=== PATIENT | female | born 1980 | race Asian ===

== ENCOUNTER 2017-04-26 21:02 | Emergency (ER) | payer OTHER ==
[~2017-04-26] VITALS: Ht 157.5 cm; Wt 81.6 kg
[~2017-04-26 21:02] MED LIST: HYDR-971 PO; NAPR500T3 PO
[2017-04-26 21:45] VITALS: BP 125/60
[2017-04-26] MEDS ORDERED: FAMO-63 PO (22:09)
[2017-04-26] MEDS ORDERED: DIPH25CA58 PO (22:09)
[2017-04-26] MEDS ORDERED: PRED-220 PO (22:09)
[2017-04-26] MEDS ORDERED: TRIA15OI TP (22:09)
--- NOTE | 2017-04-26 22:09 | PHYS DOC ---
Past Medical History Past Medical History: No Pertinent History Past Surgical History: No Surgical History Alcohol Use: None Drug Use: None Adult General Chief Complaint Chief Complaint: SKIN PROBLEM HPI HPI Patient is a 36 year old female with no significant medical history presents today with a rash to bilateral upper and lower extremities that began 3 days ago after working in the yard. Patient is Albanian speaking and hourly sign language interpreter line was used. Patient denies any fever. Review of Systems Review of Systems Constitutional: Denies fever or chills [] Eyes: Denies change in visual acuity, redness, or eye pain [] HENT: Denies nasal congestion or sore throat [] Respiratory: Denies cough or shortness of breath [] Cardiovascular: No additional information not addressed in HPI [] GI: Denies abdominal pain, nausea, vomiting, bloody stools or diarrhea [] : Denies dysuria or hematuria [] Musculoskeletal: Denies back pain or joint pain [] Integument: rash Neurologic: Denies headache, focal weakness or sensory changes [] Endocrine: Denies polyuria or polydipsia [] Allergies Allergies Allergies Coded Allergies Type Severity Reaction Last Updated Verified No Known Drug Allergies 11/07/15 No Physical Exam Physical Exam Constitutional: Well developed, well nourished, no acute distress, non-toxic appearance. [] HENT: Normocephalic, atraumatic, bilateral external ears normal, oropharynx moist, no oral exudates, nose normal. [] Eyes: PERRLA, EOMI, conjunctiva normal, no discharge. [] Neck: Normal range of motion, no tenderness, supple, no stridor. [] Cardiovascular:Heart rate regular rhythm, no murmur [] Lungs & Thorax: Bilateral breath sounds clear to auscultation [] Abdomen: Bowel sounds normal, soft, no tenderness, no masses, no pulsatile masses. [] Skin: Bilateral upper and lower extremities with moderate amount of erythematous papular rash consistent with contact dermatitis from possible poison natalia or poison oak. Back: No tenderness, no CVA tenderness. [] Extremities: No tenderness, no cyanosis, no clubbing, ROM intact, no edema. [] Neurologic: Alert and oriented X 3, normal motor function, normal sensory function, no focal deficits noted. [] Psychologic: Affect normal, judgement normal, mood normal. [] Current Patient Data Vital Signs Vital Signs Date Time Temp Pulse Resp B/P (MAP) Pulse Ox O2 Delivery O2 Flow Rate FiO2 04/26/17 21:45 98.5 67 12 98 Room Air 98.5 EKG EKG [] Radiology/Procedures Radiology/Procedures [] Course & Med Decision Making Course & Med Decision Making Pertinent Labs and Imaging studies reviewed. (See chart for details) Patient has contact dermatitis rash from either poison natalia or poison oak. Discharged with tapered dose of prednisone, Benadryl, Pepcid and triamcinolone cream. Follow-up with her own PCP in 1-2 weeks. Dragon Disclaimer Dragon Disclaimer This electronic medical record was generated, in whole or in part, using a voice recognition dictation system. Departure Departure Impression: Primary Impression: Contact dermatitis Disposition: 01 HOME, SELF-CARE Condition: STABLE Referrals: ADDIE PAULSON MD (PCP) Follow-up with your own doctor in 1-2 weeks Patient Instructions: Contact Dermatitis Additional Instructions: You were seen for contact dermatitis rash. Follow-up with your primary care doctor in the next 2 weeks. Take the medications provided as prescribed. Scripts Triamcinolone Acetonide (TRIAMCINOLONE ACETONIDE 0.1% OINT) 15 Gm Oint...g. 1 ROSETTA TP BID for WOUND CARE, #1 TUBE MIX WITH EUCERIN DIRECTED BY PHYSICIAN Prov: ENRIQUE KELLY APRN 04/26/17 Diphenhydramine Hcl (BENADRYL) 25 Mg Capsule 1 CAP PO Q4HRS W/A, #30 CAP 1 Refill Prov: ENRIQUE KELLY APRN 04/26/17 Famotidine (PEPCID) 20 Mg Tablet 20 MG PO DAILY, #7 TAB Prov: ENRIQUE KELLY APRN 04/26/17 Prednisone (PREDNISONE) 10 Mg Tablet 10 MG PO UD for PREDNISONE TAPER, #39 TAB 0 Refills Take 3 tablets by mouth twice a day for 3 days, then take 2 tablets by mouth twice a day for 3 days, then take 1 tablet by mouth twice a day for 3 days, then take 1 tablet by mouth daily x 3 days, then stop. Prov: ENRIQUE KELLY APRN 04/26/17 Problem Qualifiers Primary Impression: Contact dermatitis Contact dermatitis type: unspecified Contact dermatitis trigger: unspecified trigger Qualified Codes: L25.9 - Unspecified contact dermatitis, unspecified cause ENRIQUE KELLY APRN April 26, 2017 22:09
== END 2017-04-26 22:13 | disposition home or self-care (01) ==
LOC: ER 21:02
DX: L25.9 Unspecified contact dermatitis, unspecified cause (principal)
CPT/HCPCS: 99283

== ENCOUNTER 2017-04-30 16:52 | Emergency (ER) | payer OTHER ==
[~2017-04-30] VITALS: Ht 157.5 cm; Wt 81.6 kg
[~2017-04-30 16:52] MED LIST changes: +DIPH25CA58 PO; +FAMO-63 PO; +PRED-220 PO; +TRIA15OI TP
[2017-04-30 17:10] VITALS: BP 116/72
--- NOTE | 2017-04-30 17:24 | PHYS DOC ---
Past Medical History Past Medical History: No Pertinent History Past Surgical History: No Surgical History Alcohol Use: None Drug Use: None Adult General Chief Complaint Chief Complaint: SKIN RASH/ABSCESS [facility] HPI Patient is a 36 year old female presents emergency department stating that she was here 2 days ago for contact dermatitis. She was placed on prednisone taper. She was provided with a prescription for Pepcid as well. Patient states has had a continuous spreading of the rash up into the arm area. She states that it itches and has pustular type areas. All information was obtained through the parts interpreter line as the patient speaks Bhutanese. Review of Systems Review of Systems Constitutional: Denies fever or chills [] Eyes: Denies change in visual acuity, redness, or eye pain [] HENT: Denies nasal congestion or sore throat [] Respiratory: Denies cough or shortness of breath [] Cardiovascular: No additional information not addressed in HPI [] GI: Denies abdominal pain, nausea, vomiting, bloody stools or diarrhea [] : Denies dysuria or hematuria [] Musculoskeletal: Denies back pain or joint pain [] Integument: rash denies skin lesions [] Neurologic: Denies headache, focal weakness or sensory changes [] Endocrine: Denies polyuria or polydipsia [] Allergies Allergies Allergies Coded Allergies Type Severity Reaction Last Updated Verified No Known Drug Allergies 11/07/15 No Physical Exam Physical Exam Constitutional: Well developed, well nourished, no acute distress, non-toxic appearance. [] HENT: Normocephalic, atraumatic, bilateral external ears normal, oropharynx moist, no oral exudates, nose normal. [] Eyes: PERRLA, EOMI, conjunctiva normal, no discharge. [] Neck: Normal range of motion, no tenderness, supple, no stridor. [] Cardiovascular:Heart rate regular rhythm Lungs & Thorax: No respiratory distress noted Skin: Warm, dry, no erythema. Patient with red raised rash that appears to be pustular on the right upper arm. She does have dried areas noted. Back: No tenderness Extremities: No tenderness, no cyanosis, no clubbing, ROM intact, no edema. [] Neurologic: Alert and oriented X 3, normal motor function, normal sensory function, no focal deficits noted. [] Psychologic: Affect normal, judgement normal, mood normal. [] Current Patient Data Vital Signs Vital Signs Date Time Temp Pulse Resp B/P (MAP) Pulse Ox O2 Delivery O2 Flow Rate FiO2 04/30/17 17:10 98.2 68 16 98 Room Air 98.2 EKG EKG [] Radiology/Procedures Radiology/Procedures [] Course & Med Decision Making Course & Med Decision Making Pertinent Labs and Imaging studies reviewed. (See chart for details) Patient was instructed through the parts interpreter line to continue to use the medications as prescribed. Was also instructed to use Aveeno baths, calamine lotion as well as Benadryl. Patient was recommended to follow-up primary care physician on Saturday. Signs symptoms to return back to emergency department as been provided. [] Dragon Disclaimer Dragon Disclaimer This electronic medical record was generated, in whole or in part, using a voice recognition dictation system. Departure Departure Impression: Primary Impression: Contact dermatitis Disposition: HOME, SELF-CARE Condition: STABLE Referrals: ADDIE PAULSON MD (PCP) Patient Instructions: Contact Dermatitis, [id number] Additional Instructions: Your being evaluated for contact dermatitis. Continue the medications as you have been prescribed. Calamine lotion will help dry the areas up. He may use Benadryl 25 mg [id number] every 6 hours for itching and irritation. This medication will cause drowsiness do not take any be alert and oriented. Aveeno baths may also help soothe the skin. Keep the areas clean dry and cool. Follow-up to primary care physician Saturday. Return back to emergency prior signs and symptoms of become worse ANNALEE CARRINGTON APRN April 30, 2017 17:24
== END 2017-04-30 17:31 | disposition home or self-care (01) ==
LOC: ER 16:52
DX: L25.9 Unspecified contact dermatitis, unspecified cause (principal)
CPT/HCPCS: 99281

== ENCOUNTER 2019-11-07 10:08 | Inpatient (IN) | payer OTHER ==
[~2019-11-07] VITALS: Ht 160 cm; Wt 80.3 kg
[~2019-11-07 10:08] MED LIST changes: +DOCU-109 PO; +HYDR-3164 PO; -HYDR-971 PO; +NAPR-514 PO; -NAPR500T3 PO
[2019-11-07] MEDS ORDERED: IV RINGERS,LACTATED 1000ML 1,000 ML IV SCH (10:30)
[2019-11-07 10:56] LABS: BILIRUBIN,URINE NEGATIVE (NEG); CLARITY,URINE CLEAR; COLOR,URINE YELLOW; NITRITE,URINE NEGATIVE (NEG); PROTEIN,URINE NEGATIVE (NEG-TRACE); UROBILINOGEN,URINE 0.2 mg/dL (0.2 mg/dL)
[2019-11-07 11:14] LABS: AMNIO PT POSITIVE
[2019-11-07 11:25] LABS: BACTERIA,URINE 0 /HPF (0-FEW); RBC,URINE 0 /HPF (0-2); SQUAMOUS EPITHELIAL CELL,UR FEW /LPF
[2019-11-07] MEDS ORDERED: LIDOCAINE 1% PF 30 ML VIAL. INJ PRN (11:30)
[2019-11-07] MEDS ORDERED: NALBUPHINE 10 MG/ML AMPUL. IV PRN (11:30)
[2019-11-07] MEDS ORDERED: OXYTOCIN 30 UNIT/500 ML PREMIX 500 ML IV PRN ×3 (11:30→16:15)
[2019-11-07] MEDS ORDERED: 0.9 % SODIUM CHLORIDE 10 ML DISP.SYRIN. IV PRN ×2 (11:30→16:15)
[2019-11-07] MEDS ORDERED: TERBUTALINE 1 MG/ML VIAL. SQ PRN (11:30)
[2019-11-07 11:44] VITALS: BP 128/70
[2019-11-07] MEDS ORDERED: AMPICILLIN SODIUM 2 GM in IV NORMAL SALINE 100ML 100 ML IV ONE (12:00)
[2019-11-07] MEDS: IV NORMAL SALINE 1000ML BAG 1,000 ML IV SCH ×2 (12:03→13:03)
[2019-11-07 12:31] LABS: BASO % 0 % (0-3); EOS % 0 % (0-3); HEMATOCRIT 39.2 % (36.0-47.0); HEMOGLOBIN 13.3 g/dL (12.0-15.5); LYMPH # 1.3 x10^3/uL (1.0-4.8); LYMPH % 20 % (24-48); MEAN CORPUSCULAR HEMOGLOBIN 28 pg (25-35); MEAN CORPUSCULAR HGB CONC 34 g/dL (31-37); MEAN CORPUSCULAR VOLUME 83 fL (79-100); MONO # 0.4 x10^3/uL (0.0-1.1); MONO % 6 % (0-9); NEUT # 4.8 x10^3/uL (1.8-7.7); NEUT % 73 % (31-73); PLATELET COUNT 171 x10^3/uL (140-400); RED BLOOD COUNT 4.72 x10^6/uL (3.50-5.40); RED CELL DISTRIBUTION WIDTH 13.7 % (11.5-14.5); WHITE BLOOD COUNT 6.6 x10^3/uL (4.0-11.0)
[2019-11-07] MEDS ORDERED: ROPIVacaine 0.2% PF 10 ML VIAL. ONE ×2 (15:32→16:00)
[2019-11-07] MEDS ORDERED: L&D EPIDURAL SYRINGE 0 ML ONE (15:33)
[2019-11-07] MEDS ORDERED: BUPIVACAINE MPF 0.25% 30 ML VIAL. EPID PRN (15:45)
[2019-11-07] MEDS ORDERED: NALOXONE 0.4 MG/ML VIAL. IV PRN (15:45)
[2019-11-07] MEDS ORDERED: ROPIVacaine 0.2% PF 10 ML VIAL. EPID PRN (15:45)
[2019-11-07] MEDS ORDERED: L&D EPIDURAL SYRINGE 50 ML EPID PRN (15:45)
[2019-11-07] MEDS ORDERED: fentaNYL PF VIAL 100 MCG/2 ML VIAL EPID PRN (15:45)
[2019-11-07] MEDS ORDERED: AMPICILLIN SODIUM 1 GM in IV NORMAL SALINE 50ML 50 ML IV SCH (16:00)
--- NOTE | 2019-11-07 16:10 | PDOC ---
GENERAL General: 38yrs old EDC12/01/19 admitted in Active labor and Spontaneous Rupture of Membranes. Cervix dilated to 2 cm . VITAL SIGNS Vital Signs/I&O: Vital Signs Date Time Temp Pulse Resp B/P (MAP) Pulse Ox O2 Delivery O2 Flow Rate FiO2 11/07/19 11:44 98.5 75 18 128/70 (89) 98 Room Air 98.5 ALLERGIES Allergies: Allergies Coded Allergies Type Severity Reaction Last Updated Verified No Known Drug Allergies 11/07/15 No MEDS Medications: Current Medications Medications (Trade) Dose Ordered Sig/Prosper Route PRN Reason Start Time Stop Time Status Last Admin Dose Admin Sodium Chloride 1,000 ml @ 125 mls/hr Q8H IV 11/07/19 11:28 11/07/19 13:03 Ampicillin Sodium 2 gm/Sodium Chloride 100 ml @ 200 mls/hr 1X ONCE IV 11/07/19 12:00 11/07/19 12:29 DC 11/07/19 12:22 Oxytocin/Sodium Chloride 500 ml @ 0 mls/hr CONT PRN IV SEE I/O RECORD 11/07/19 11:30 11/07/19 13:02 LAB Lab: Laboratory Tests Test 11/07/19 10:19 11/07/19 10:45 11/07/19 11:48 11/07/19 11:52 Urine Collection Type Unknown Urine Color Yellow Urine Clarity Clear Urine pH 7.0 Urine Specific [place] <=1.005 Urine Protein Negative mg/dL (NEG-TRACE) Urine Glucose (UA) Negative mg/dL (NEG) Urine Ketones (Stick) Negative mg/dL (NEG) Urine Blood Negative (NEG) Urine Nitrite Negative (NEG) Urine Bilirubin Negative (NEG) Urine Urobilinogen Dipstick 0.2 mg/dL (0.2 mg/dL) Urine Leukocyte Esterase Small (NEG) Urine RBC 0 /HPF (0-2) Urine WBC 1-4 /HPF (0-4) Urine Squamous Epithelial Cells Few /LPF Urine Bacteria 0 /HPF (0-FEW) Amniotic Fluid Swab Test Positive White Blood Count 6.6 x10^3/uL (4.0-11.0) Red Blood Count 4.72 x10^6/uL (3.50-5.40) Hemoglobin 13.3 g/dL (12.0-15.5) Hematocrit 39.2 % (36.0-47.0) Mean Corpuscular Volume 83 fL (79-100) Mean Corpuscular Hemoglobin 28 pg (25-35) Mean Corpuscular Hemoglobin Concent 34 g/dL (31-37) Red Cell Distribution Width 13.7 % (11.5-14.5) Platelet Count 171 x10^3/uL (140-400) Neutrophils (%) (Auto) 73 % (31-73) Lymphocytes (%) (Auto) 20 % (24-48) L Monocytes (%) (Auto) 6 % (0-9) Eosinophils (%) (Auto) 0 % (0-3) Basophils (%) (Auto) 0 % (0-3) Neutrophils # (Auto) 4.8 x10^3/uL (1.8-7.7) Lymphocytes # (Auto) 1.3 x10^3/uL (1.0-4.8) Monocytes # (Auto) 0.4 x10^3/uL (0.0-1.1) Eosinophils # (Auto) 0.0 x10^3/uL (0.0-0.7) Basophils # (Auto) 0.0 x10^3/uL (0.0-0.2) Treponema pallidum Antibody Nonreactive (Nonreactive) Glucose (Fingerstick) 75 mg/dL (70-99) Laboratory Tests 11/07/19 11:48 DANETTE NAVARRETE MD Nov 07, 2019 16:10
[2019-11-07] MEDS ORDERED: MAG HYDROX/ALUMINUM HYD/SIMETH 30 ML ORAL.SUSP PO PRN (16:15)
[2019-11-07] MEDS ORDERED: ACETAMINOPHEN 325 MG TABLET. PO PRN (16:15)
[2019-11-07] MEDS ORDERED: PHENYLEPH/MINERAL OIL/PETROLAT RECTAL OINTMENT TUBE. RC PRN (16:15)
[2019-11-07] MEDS ORDERED: oxyCODONE/APAP 5/325 1 TAB TABLET PO PRN (16:15)
[2019-11-07] MEDS ORDERED: MMR per PROTOCOL. MC PRN (16:15)
[2019-11-07] MEDS ORDERED: HYDROCORTISONE 1% TOPICAL OINTMENT 30GM TUBE. TP PRN (16:15)
[2019-11-07] MEDS ORDERED: MAGNESIUM HYDROXIDE 2,400 MG/30 ML ORAL.SUSP. PO PRN (16:15)
[2019-11-07] MEDS ORDERED: ZOLPIDEM 5 MG TABLET. PO PRN (16:15)
[2019-11-07] MEDS ORDERED: SIMETHICONE 80 MG TAB.CHEW PO PRN (16:15)
[2019-11-07] MEDS ORDERED: diphenhydrAMINE HCL 25 MG CAPSULE PO PRN (16:15)
[2019-11-07] MEDS ORDERED: BENZOCAINE 20% TOPICAL AEROSOL SPRAY 57GM CAN. TP PRN (16:15)
--- NOTE | 2019-11-07 16:47 | HP ---
ADMIT DATE: 11/07/2019 CHIEF COMPLAINT AND HISTORY OF PRESENT ILLNESS: This patient is a 38-year-old [place] lady who is a 6, para 5, admitted to the hospital with a history of having contractions and also ruptured membranes and leaking amniotic fluid. She has had a care, Dr. Palafox's office and did have records and she is admitted for vaginal delivery at this time. OBJECTIVE: VITAL SIGNS: Stable. GENERAL: She is gestational diabetes lady, taking metformin at this time. ABDOMEN: Soft, 36 weeks' size. Her due date was 12/01/2019. heart tones are 146 per minute, vertex presenting. PELVIC: Exam showed leaking amniotic fluid, cervix about 1-2 cm dilated at the time of admission to the hospital. DIAGNOSES: 6, labor, gestational diabetes. PLAN: Vaginal delivery. DANETTE NAVARRETE MD DR: SKYE/yolette JOB#: [id number] / [id number]
[2019-11-07] MEDS: IBUPROFEN 200 MG TABLET. PO SCH (18:08)
[2019-11-07 19:07] VITALS: BP 104/48
--- NOTE | 2019-11-07 19:30 | OP ---
DATE OF SURGERY: 11/07/2019 DELIVERY NOTE This patient is a 38-year-old [place] lady who is a 6, para 5, EDC 12/01/2019, has gestational diabetes, admitted to the hospital with a history of contractions and also leaking amniotic fluid, having pain in the pelvic area. At the time of admission to the hospital, cervix dilated to about 1-2 cm dilated and leaking amniotic fluid, having contractions. She did have a slow progress of labor. IV Pitocin was given for augmentation of labor and then she went fast completely dilated, had a spontaneous vaginal delivery. She did receive epidural block towards the end of labor and a live male weighing 6 pounds 9 ounces, delivered at 1556 hours with good scores. Cord was clamped and cut. Cord blood was taken. Placenta removed spontaneous. No hemorrhage noted and she did not have any vaginal, vulvar tears at this time. Baby is referred to pump house technician for further care and treatment. Estimated blood loss about 100 mL. Mother tolerated the delivery well. No complications at this time. DANETTE NAVARRETE MD DR: SKYE/yolette JOB#: [id number] / [id number]
[2019-11-07 23:36] VITALS: BP 90/46
[2019-11-08 06:15] VITALS: BP 90/45
[2019-11-08] MEDS ORDERED: FERROUS SULFATE 325 MG TABLET. PO SCH (08:00)
[2019-11-08] MEDS: DOCUSATE SODIUM 100 MG CAPSULE. PO PRN ×2 (09:20→19:37)
[2019-11-08] MEDS: IBUPROFEN 400 MG TABLET. PO PRN ×2 (09:20→19:37)
--- NOTE | 2019-11-08 10:10 | PDOC ---
GENERAL General: Vital signs stable. Doing ok. VITAL SIGNS Vital Signs/I&O: Vital Signs Date Time Temp Pulse Resp B/P (MAP) Pulse Ox O2 Delivery O2 Flow Rate FiO2 11/08/19 06:15 98.0 69 90/45 (60) 95 98.0 11/07/19 19:07 18 Room Air ALLERGIES Allergies: Allergies Coded Allergies Type Severity Reaction Last Updated Verified No Known Drug Allergies 11/07/15 No MEDS Medications: Current Medications Medications (Trade) Dose Ordered Sig/Prosper Route PRN Reason Start Time Stop Time Status Last Admin Dose Admin Sodium Chloride 1,000 ml @ 125 mls/hr Q8H IV 11/07/19 11:28 11/07/19 13:03 Ampicillin Sodium 2 gm/Sodium Chloride 100 ml @ 200 mls/hr 1X ONCE IV 11/07/19 12:00 11/07/19 12:29 DC 11/07/19 12:22 Oxytocin/Sodium Chloride 500 ml @ 0 mls/hr CONT PRN IV SEE I/O RECORD 11/07/19 11:30 11/07/19 13:02 Ibuprofen (Motrin) 800 mg PRN Q6HRS PRN PO PAIN 11/07/19 11:30 11/08/19 09:20 Ibuprofen (Motrin) 600 mg Q6HRS PO 11/07/19 18:00 11/07/19 18:08 Docusate Sodium (Colace) 100 mg PRN BID PRN PO CONSTIPATION 11/07/19 16:15 11/08/19 09:20 LAB Lab: Laboratory Tests Test 11/07/19 10:19 11/07/19 10:45 11/07/19 11:48 11/07/19 11:52 Urine Collection Type Unknown Urine Color Yellow Urine Clarity Clear Urine pH 7.0 Urine Specific [place] <=1.005 Urine Protein Negative mg/dL (NEG-TRACE) Urine Glucose (UA) Negative mg/dL (NEG) Urine Ketones (Stick) Negative mg/dL (NEG) Urine Blood Negative (NEG) Urine Nitrite Negative (NEG) Urine Bilirubin Negative (NEG) Urine Urobilinogen Dipstick 0.2 mg/dL (0.2 mg/dL) Urine Leukocyte Esterase Small (NEG) Urine RBC 0 /HPF (0-2) Urine WBC 1-4 /HPF (0-4) Urine Squamous Epithelial Cells Few /LPF Urine Bacteria 0 /HPF (0-FEW) Amniotic Fluid Swab Test Positive White Blood Count 6.6 x10^3/uL (4.0-11.0) Red Blood Count 4.72 x10^6/uL (3.50-5.40) Hemoglobin 13.3 g/dL (12.0-15.5) Hematocrit 39.2 % (36.0-47.0) Mean Corpuscular Volume 83 fL (79-100) Mean Corpuscular Hemoglobin 28 pg (25-35) Mean Corpuscular Hemoglobin Concent 34 g/dL (31-37) Red Cell Distribution Width 13.7 % (11.5-14.5) Platelet Count 171 x10^3/uL (140-400) Neutrophils (%) (Auto) 73 % (31-73) Lymphocytes (%) (Auto) 20 % (24-48) L Monocytes (%) (Auto) 6 % (0-9) Eosinophils (%) (Auto) 0 % (0-3) Basophils (%) (Auto) 0 % (0-3) Neutrophils # (Auto) 4.8 x10^3/uL (1.8-7.7) Lymphocytes # (Auto) 1.3 x10^3/uL (1.0-4.8) Monocytes # (Auto) 0.4 x10^3/uL (0.0-1.1) Eosinophils # (Auto) 0.0 x10^3/uL (0.0-0.7) Basophils # (Auto) 0.0 x10^3/uL (0.0-0.2) Treponema pallidum Antibody Nonreactive (Nonreactive) Glucose (Fingerstick) 75 mg/dL (70-99) Test 11/07/19 15:37 11/08/19 05:50 Glucose (Fingerstick) 67 mg/dL (70-99) L Hematocrit 34.5 % (36.0-47.0) L Laboratory Tests 11/07/19 11:48 11/08/19 05:50 ASSESSMENT & PLAN A&P Abdomen soft. Lochia normal. Baby doing ok. DANETTE NAVARRETE MD Nov 08, 2019 10:10
[2019-11-08 13:30] VITALS: BP 95/51
[2019-11-08 17:45] VITALS: BP 92/49
[2019-11-08 21:00] VITALS: BP 106/63
[2019-11-09 05:15] VITALS: BP 89/53
[2019-11-09] MEDS: IBUPROFEN 200 MG TABLET. PO SCH ×2 (06:00)
--- NOTE | 2019-11-09 08:29 | PDOC ---
GENERAL General: Patient doing ok. No problems. VITAL SIGNS Vital Signs/I&O: Vital Signs Date Time Temp Pulse Resp B/P (MAP) Pulse Ox O2 Delivery O2 Flow Rate FiO2 11/09/19 05:15 98.0 68 16 89/53 (65) 100 Room Air 98.0 11/08/19 17:45 98.0 ALLERGIES Allergies: Allergies Coded Allergies Type Severity Reaction Last Updated Verified No Known Drug Allergies 11/07/15 No ASSESSMENT & PLAN A&P Abdomen soft Lochia normal. Patient doing ok. Wants to go home. Will see her in 6 weeks in office. DANETTE NAVARRETE MD Nov 09, 2019 08:29
[2019-11-09] MEDS: IBUPROFEN 400 MG TABLET. PO PRN (08:56)
[2019-11-09] MEDS: DOCUSATE SODIUM 100 MG CAPSULE. PO PRN (08:59)
[2019-11-09 10:35] VITALS: BP 122/75
--- NOTE | 2019-11-09 11:10 | NUR ---
Discharge and follow up instructions reviewed with patient and her S/O using an interpretor # [id number]. No RX given, pt denied any complaints or questions at time of DC. Pt ambulated out of hospital with staff and her S/O carrying in an car seat. Infant secured in rear facing car seat.
== END 2019-11-09 11:10 | disposition home or self-care (01) | DRG 805 ==
LOC: 3 SO LND 10:08 → OBSVTOIN 10:08 → 3 NORTH 19:06
PROVIDERS: ADMIT Obstetrics & Gynecology; ATTEND Obstetrics & Gynecology
PROC: 10E0XZZ Delivery of Products of Conception, External Approach (ICD-10-PCS; principal; 2019-11-07)
PROC: 00HU33Z Insertion of Infusion Device into Spinal Canal, Percutaneous Approach (ICD-10-PCS; 2019-11-07)
PROC: 3E0R3BZ Introduction of Anesthetic Agent into Spinal Canal, Percutaneous Approach (ICD-10-PCS; 2019-11-07)
DX: O24.425 Gestational diabetes mellitus in childbirth, controlled by oral hypoglycemic drugs (principal); O60.14X0 Preterm labor third trimester with preterm delivery third trimester, not applicable or unspecified; Z37.0 Single live birth; Z3A.36 36 weeks gestation of pregnancy
CPT/HCPCS: 36415; 81001; 82962; 84112; 85014; 85025; 86592; 86850; 86900; 86901; 87086; G0378; J0290; J2590; J2795; J7030